=== PATIENT | female | born 1980 | race African-American/Black ===

== ENCOUNTER 2017-05-16 03:20 | Emergency (ER) | payer OTHER, MEDICAID ==
[~2017-05-16] VITALS: Ht 162.6 cm; Wt 96.0 kg
[~2017-05-16 03:20] MED LIST: ABILIFY 5 MG; ATRIPLA; DARU800T; EFAV1TAB3; ELVI1TAB2; EMTR1TAB11; EMTR1TAB8; EMTRIVA; QUETIAPINE; RALT400T; STRIBILD; VALC450; [UNRECOGNIZED DRUG - CODE]; seroquel
[2017-05-16 07:26] LABS: BASOPHILS % 0.5 % (0.0-2.0); EOSINOPHILS % 2.3 % (0.0-5.0); HEMATOCRIT. 36.6 % (36.0-48.0); HEMOGLOBIN. 12.3 g/dL (12.0-16.0); LYMPHOCYTES % 18.7 % (20.0-50.0); MEAN CORPUSCULAR HEMOGLOBIN 31.5 pg (28.0-32.0); MEAN CORPUSCULAR VOLUME 93.7 fL (81.0-99.0); MEAN PLATELET VOLUME 7.8 fl (7.4-10.4); MONOCYTES % 7.9 % (2.0-8.0); NEUTROPHILS % 70.6 % (40.0-76.0); PLATELET 325 x1000/uL (130-400); RED BLOOD CELL COUNT 3.91 mill/uL (4.2-5.4); RED CELL DISTRIBUTION WIDTH 13.7 % (11.6-14.6)
[2017-05-16 07:29] LABS: CHLORIDE 105 mEq/L (98-107)
[2017-05-16 07:35] LABS: CARBON DIOXIDE 25 mEq/L (21-32); ETHANOL BLOOD < 10 mg/dL
[2017-05-16 07:59] LABS: *BARBITURATES SCREEN URINE NEGATIVE (NEGATIVE); *BENZODIAZEPINES SCREEN URINE NEGATIVE (NEGATIVE); *COCAINE SCREEN URINE NEGATIVE (NEGATIVE); CANNABINOID URINE SCREEN NEGATIVE (NEGATIVE); METHADONE URINE SCREEN NEGATIVE (NEGATIVE); OPIATES URINE SCREEN NEGATIVE (NEGATIVE); PHENCYCLIDINE URINE SCREEN NEGATIVE (NEGATIVE)
[2017-05-16 08:00] LABS: *AMPHETAMINES SCREEN URINE PRESUMTIVE POSITIVE (NEGATIVE)
[2017-05-16] MEDS ORDERED: IBUPROFEN 600MG TABLET PO ONE (10:45)
[2017-05-16] MEDS ORDERED: ARIPIPRAZOLE 5MG TABLET PO ONE (11:00)
[2017-05-16] MEDS ORDERED: ARIPIPRAZOLE 10MG TABLET PO ONE (11:00)
[2017-05-16 11:05] VITALS: BP 137/71
== END 2017-05-16 11:42 | disposition home or self-care (01) ==
LOC: ER 03:20
DX: J06.9 Acute upper respiratory infection, unspecified (principal); M21.612 Bunion of left foot; M21.611 Bunion of right foot; F25.0 Schizoaffective disorder, bipolar type; F17.210 Nicotine dependence, cigarettes, uncomplicated; Z87.891 Personal history of nicotine dependence; R45.851 Suicidal ideations; Z59.0 Homelessness
CPT/HCPCS: 36415; 71045; 80048; 80305; 80307; 80329; 81025; 85025; 99285; G0482